=== PATIENT | male | born 1955 | race Caucasian/White ===

== ENCOUNTER 2020-11-11 21:19 | Emergency (ER) | payer MEDICARE, OTHER ==
[~2020-11-11 21:19] MED LIST: BENADRYL 50MG C50 MG PO; COLACE 100MG C100 MG PO; ETODOLAC ER500 MG PO; ETODOLAC500 MG PO; FISH OIL 1,0001 EAC4 PO; FISH OIL 1,0001 EACH PO; HYDROXYZINE PAM50 MG PO; LIPITOR TAB 1010 MG PO; NEXIUM20 MG PO; NORCO 7.5-3251 EACH PO; PEPCID40 MG PO; PREDNISONE 50 M50 MG PO; THERAGRAN M TAB1 EA PO; VISTARIL 50 MG50 MG PO; VITAMIN D5000 UNIT PO; ZOFRAN4 MG PO
[2020-11-11 23:17] LABS: HEMOGLOBIN 15.8 gm/dl (14.0-17.5); RED BLOOD COUNT 4.82 M/UL (4.20-5.50)
[2020-11-11 23:35] LABS: BUN/CREATININE RATIO 18 (0-10)
== END 2020-11-12 01:01 | disposition home or self-care (01) ==
LOC: ER1 21:19
PROVIDERS: Emergency Medicine
DX: R42 Dizziness and giddiness (principal); E78.5 Hyperlipidemia, unspecified
CPT/HCPCS: 70450; 71045; 73030; 80053; 83690; 83735; 83880; 84100; 85025; 85610; 85730; 93005; 99284

== ENCOUNTER → 2022-02-15 | Outpatient (CLI) | payer MEDICARE, OTHER | LOC: CT 09:08 | DX: K42.9 Umbilical hernia without obstruction or gangrene (principal); K76.0 Fatty (change of) liver, not elsewhere classified | CPT/HCPCS: 36415; 82565; 84520; Q9967 ==